=== PATIENT | female | born 1995 | race Two or more races ===

== ENCOUNTER → 2024-12-10 | Outpatient (CLI) | payer MEDICAID, SELFPAY ==
[2024-12-10 13:43] LABS: Misc Send Out* See Sep Rpt
[2024-12-10 14:38] LABS: Basophils % (Auto) 0 % (0-2.5); Eosinophils # (Auto) 0.1 Thou/mm3 (0.0-0.5); Eosinophils % (Auto) 1 % (0-10); Hematocrit 34.3 % (36.0-46.0); Hemoglobin 11.6 g/dL (12.0-16.0); Immature Granulocytes % (Auto) 0 % (0-0); Immature Granulocytes Auto 0.03 Thou/mm3 (0.00-0.00); Lymphocytes % (Auto) 23 % (10-50); Mean Corpuscular HGB Conc 33.8 g/dl (31.0-37.0); Mean Corpuscular Hemoglobin 28.6 pg (25.0-35.0); Mean Corpuscular Volume 85 fL (80-100); Monocytes # (Auto) 0.4 Thou/mm3 (0.0-0.8); Monocytes % (Auto) 5 % (0-12); Neutrophils # (Auto) 5.9 Thou/mm3 (1.8-7.7); Neutrophils % (Auto) 70 % (37-80); Nucleated Red Blood Cell % 0 /100 WBC (0); Platelet Count 329 Thou/mm3 (140-440); RDW Standard Deviation 42.4 fL (36.4-46.3); Red Blood Count 4.05 Miln/mm3 (4.00-5.20); White Blood Count 8.4 Thou/mm3 (3.6-11.0)
[2024-12-10 15:16] LABS: Glucose Estimated Average 97 mg/dL (80-131)
[2024-12-10 15:25] LABS: Syphilis Nonreactive (Nonreactive)
[2024-12-10 15:53] LABS: Hepatitis B Surface Antigen Non Reactive (Non React); Hepatitis C Antibody Non Reactive (Non React); Rubella, IgG Antibody Reactive (Immune)
[2024-12-10 16:08] LABS: HIV (1&2) Antibody Rapid Non-Reactive
[2024-12-11 13:01] LABS: Chlamydia trachomatis PCR Negative (Not Detect); Neisseria Gonorrhoeae DNA PCR Negative (Not Detect); Trichomonas Negative (Negative)
[2024-12-14 06:59] LABS: Varicella-Zoster IgG Ab* 1.77 S/CO
== END | disposition home or self-care (01) ==
LOC: COPL 13:15
PROVIDERS: PCP Obstetrics & Gynecology; Referring Provider Obstetrics & Gynecology; Visit Provider Obstetrics & Gynecology
DX: Z34.01 Encounter for supervision of normal first pregnancy, first trimester (principal)
CPT/HCPCS: 36415; 83036; 85025; 86703; 86762; 86780; 86787; 86803; 86850; 86900; 86901; 87086; 87340; 87491; 87591; 87661

== ENCOUNTER 2025-01-28 11:21 | Emergency (ER) | payer MEDICAID, SELFPAY ==
[2025-01-28 11:22] VITALS: BMI 27.3
[2025-01-28 11:37] VITALS: BP 106/71; PULSE 123; RESP 20; TEMP 36.9; O2SAT 97
--- NOTE | 2025-01-28 11:39 | XR_ITS ---
Examination: Complete OB ultrasound greater than 14 weeks Date and time of exam: January 28, 2025 1158 hours INDICATIONS: Abdominal pain and vomiting beginning 4 days ago Findings: Viable intrauterine single fetus with single amniotic sac presentation breech spine maternal right Cardiac motion 150 BPM Placenta anterior grade 1 Umbilical cord insertion seen Amniotic fluid adequate Cervix 3.1 cm Right ovary obscured by bowel gas Left ovary 2.8 cm arterial flow. Composite estimated gestational age based on BPD, head circumference, abdominal circumference, femur length is 20 weeks 0 days Estimated weight 305 g. Survey of intracranial anatomy, spinal anatomy, abdominal anatomy, four-chamber heart performed with no abnormalities identified. Impression: Viable intrauterine gestation breech presentation.
--- NOTE | 2025-01-28 11:40 | EDNOTE_ITS ---
Nausea/Vomit./Diarrhea-RME/HPI General Chief complaint: Nausea/Vomiting/Diarrhea Stated complaint: DIARRHEA FEVER Time Seen by Provider: 01/28/25 11:26 Source: patient Arrival date/time: 01/28/25 11:21 29-year-old female with no known medical history presents to the emergency room with a chief complaint of diarrhea, fever because of nausea x 2 days. Patient is currently 19 weeks . Patient denies any vaginal bleeding or pelvic cramping or pain. Mode of arrival: ambulatory Limitations: no limitations Related Data Home Medications ?Medication ?Instructions ?Recorded ?Confirmed hydroxyzine HCl 25 mg tablet 25 mg PO DAILY 09/20/21 0 09/20/21 Previous Rx's ?Medication ?Instructions ?Recorded ondansetron 4 mg disintegrating 4 mg PO Q8H PRN nausea and 01/28/25 tablet vomiting #14 tabs Allergies Allergy/AdvReac Type Severity Reaction Status Date / Time banana Allergy Intermediate Swelling Verified 10/26/21 17:50 Review of Systems Review of Systems Systems Reviewed: All systems reviewed, normal except as documented Constitutional Constitutional: Reports system reviewed and no additional complaints, except as documented, Denies fatigue, Denies fever(s), Denies headache(s) and Denies weakness Eyes Eyes: Reports system reviewed and no additional complaints, except as documented, Denies blurry vision and Denies change in vision ENT Ears, Nose, Mouth, and Throat: Reports system reviewed and no additional complaints, except as documented, Denies otalgia, Denies headache(s), Denies nasal congestion, Denies throat swelling and Denies vertigo Cardiovascular Cardiovascular: Reports system reviewed and no additional complaints, except as documented, Denies chest pain, Denies dyspnea and Denies dyspnea on exertion Respiratory Respiratory: Reports system reviewed and no additional complaints, except as documented, Denies chest congestion, Denies cough, Denies dyspnea, Denies dyspnea on exertion and Denies wheezing Gastrointestinal Gastrointestinal: Reports system reviewed and no additional complaints, except as documented, Denies abdominal pain, Denies cramping, Denies nausea and Denies vomiting Genitourinary Genitourinary: Reports system reviewed and no additional complaints, except as documented Musculoskeletal Musculoskeletal: Reports system reviewed and no additional complaints, except as documented and Denies back pain Integumentary/Breasts Skin/Breast: Reports system reviewed and no additional complaints, except as documented and Denies wounds Neurologic Neurologic: Reports system reviewed and no additional complaints, except as documented, Denies confusion, Denies headache(s), Denies lack of coordination, Denies vertigo and Denies weakness Psychiatric Psychiatric: Reports system reviewed and no additional complaints, except as documented, Denies anxiety, Denies confusion, Denies depression, Denies paranoia, Denies suicidal ideation and Denies tactile hallucinations Endocrine Endocrine: Reports system reviewed and no additional complaints, except as documented and Denies fatigue Hematologic/Lymphatic Hematologic/Lymphatic: Reports system reviewed and no additional complaints, except as documented and Denies lymphadenopathy Allergic/Immunologic Allergic/Immunologic: Reports system reviewed and no additional complaints, except as documented, Denies throat swelling, Denies urticaria and Denies wheezing ED Exam General Limitations: Present no limitations General appearance: Present alert and in no apparent distress Head Head exam: Present atraumatic Eye Eye exam: Present normal appearance, PERRL and EOMI ENT ENT exam: Present normal exam, normal oropharynx and mucous membranes moist Neck Neck exam: Present normal inspection, full ROM and trachea midline Chest Chest inspection: Present normal inspection and symmetric chest wall rise Respiratory Respiratory exam: Present normal lung sounds bilaterally Cardiovascular Cardiovascular exam: Present regular rate, normal rhythm and normal heart sounds Abdominal Exam Abdominal exam: Present soft, tenderness and normal bowel sounds Abdominal tenderness: Present diffuse and mild Extremities Exam Extremities exam: Present normal inspection and full ROM Back Exam Back exam: Present normal inspection and full ROM Neurological Exam Neurological exam: Present alert, oriented X3 and CN II-XII intact Psychiatric Psychiatric exam: Present normal affect and normal mood Skin Skin exam: Present warm, dry, intact and normal color Course Quality Measures none Orders Category Date Time Status US OB >= 14 weeks Fetus Stat Exams 01/28/25 11:39 Completed ABO/RH Type Stat Lab 01/28/25 12:32 Completed Beta HCG,Quantitative Stat Lab 01/28/25 12:32 Completed CBC Stat Lab 01/28/25 12:32 Completed CMP [Comprehensive Metabolic Panel] Stat Lab 01/28/25 12:32 Completed UA [Urinalysis] Stat Lab 01/28/25 11:51 Completed Metoclopramide [Reglan] Med 01/28/25 14:10 Discontinued 10 mg PO X1 ONE Ondansetron Odt [Zofran Odt] Med 01/28/25 11:39 Discontinued 4 mg PO X1 ONE Potassium Chloride [K-Dur] Med 01/28/25 14:10 Discontinued 40 meq PO X1 ONE Vital Signs Vital signs: Vital Signs Temperature 98.5 F 01/28/25 11:37 Pulse Rate 123 H 01/28/25 11:37 Respiratory Rate 20 01/28/25 11:37 Blood Pressure 106/71 01/28/25 11:37 Pulse Oximetry (%) 97 01/28/25 11:37 Saturation 97% within normal limits Nausea/Vomiting/Diarrhea MDM Narrative MDM Narrative:: 29-year-old female with no known medical history presents to the emergency room with a chief complaint of diarrhea, fever because of nausea x 2 days. Patient is currently 19 weeks . Patient denies any vaginal bleeding or pelvic cramping or pain. Patient is hemodynamically stable she is afebrile Physical examination shows a soft nontender abdomen. Patient states her main complaint is having diarrhea and nausea vomiting. Ultrasound OB was completed and shows a viable intrauterine gestation with heart tones at 158 bpm and an hCG level of 30,911 During her stay the patient was given Zofran with significant improvement to her symptoms Patient was discharged and educated to follow-up with primary care provider in the next 24 to 48 hours and return to the emergency room for any evidence of worsening signs or symptoms Patient data External records reviewed:: [facility] previous records Clinical information provided by:: patient Social determinants that could affect healthcare access:: none Patient has the following chronic illnesses:: No chronic illness How is presenting disease/condition affected by chronic disease/condition?: no chronic disease Evaluation data The following diagnostics were reviewed and interpreted by me:: lab results and radiology exam(s) Lab and/or radiology exams considered but not ordered:: Labs and radiology exams considered and ordered Interpretation Summary: OB ultrasound-Findings: Viable intrauterine single fetus with single amniotic sac presentation breech spine maternal right Cardiac motion 150 BPM Placenta anterior grade 1 Umbilical cord insertion seen Amniotic fluid adequate Cervix 3.1 cm Right ovary obscured by bowel gas Left ovary 2.8 cm arterial flow. Composite estimated gestational age based on BPD, head circumference, abdominal circumference, femur length is 20 weeks 0 days Estimated weight 305 g. Survey of intracranial anatomy, spinal anatomy, abdominal anatomy, four-chamber heart performed with no abnormalities identified. Impression: Viable intrauterine gestation breech presentation. Medications / Prescriptions Medications / Prescriptions considered but not ordered:: Medication given Medication administrations:: Medication Administration History Discontinued Medications Metoclopramide HCl (Metoclopramide 5 Mg Tablet) 10 mg PO X1 ONE Stop: 01/28/25 14:11 Last Admin: 01/28/25 14:25 Dose: 10 mg Documented By: EF Ondansetron HCl (Ondansetron Odt 4 Mg Tabrap) 4 mg PO X1 ONE; Protocol Stop: 01/28/25 11:40 Last Admin: 01/28/25 11:48 Dose: 4 mg Documented By: EF Potassium Chloride (Potassium Chloride 20 Meq Tabcr) 40 meq PO X1 ONE Stop: 01/28/25 14:11 Last Admin: 01/28/25 14:25 Dose: 40 meq Documented By: EF Medication given Consultations Consultation(s) initiated? (list below): No Diagnosis Nausea Differential Diagnosis: food poisoning, gastroenteritis and dehydration Most likely diagnosis given after review of the tests above:: Gastroenteritis Admission Indicated Admission indicated?: not indicated Admission Request Was there a request for admission?: No Disposition Plan Disposition Plan: Discharge Discharge Attestation Discharge Attestation: The patient and all family members were given an opportunity to ask questions and understood the discharge instructions. Discharge instructions specifically effects, indications for sooner follow up or return to the emergency department, and the expected course of current diagnosis. Patient condition: Stable Discharge Plan Plan Patient Disposition: HOME (Self Care) Discharge Disposition comment: Stable Prescriptions/Referrals Prescriptions/Med Rec: New ondansetron 4 mg tablet,disintegrating 4 mg PO Q8H PRN (Reason: nausea and vomiting) Qty: 14 0RF No Action hydroxyzine HCl 25 mg Tablet 25 mg PO DAILY Referrals: Ayah Keyes PA-C [Primary Care Provider] - In 1 week Problem List Clinical Impression: Gastroenteritis Patient/Caregiver Discharge Instructions Education Materials: Understanding Colitis, ED Gastroenteritis, Noninfectious Additional Instructions: Please follow-up with your primary care provider in the next 24 to 48 hours Ultrasound of your is within normal limits. Your blood work and urinalysis were within normal limits Medication was sent to your pharmacy to help you with your nausea For any evidence of worsening signs or symptoms return to the emergency room immediately Print Language: Malian Stand Alone Forms: Nilam Award Info., Work/School Release, Patient Portal Info Letter BALBIR Supervising Physician BALBIR Supervising Physician: Dr. Parmar
[2025-01-28] MEDS: ONDANSETRON ODT 4 MG TABRAP PO (11:48)
[2025-01-28 11:57] LABS: Collection Type, Urine Clean Catch
[2025-01-28 12:45] LABS: Bilirubin,Urine Negative (Negative); Blood,Urine Negative (Negative); Color,Urine Yellow (Lt Yel-Yel); Glucose, Urine Negative (Negative); Ketones,Urine 4+ (Negative); Leukocyte Esterase,Urine Positive (Negative); Nitrite,Urine Negative (Negative); Protein,Urine 1+ (Neg - Trace); RBC,Urine 3 /hpf (0-3); Specific Gravity,Urine 1.028 (1.001-1.035); Squamous Epithelial Cell,Urine 16 /hpf (0-5); WBC,Urine 4 /hpf (0-5)
[2025-01-28 12:52] LABS: Clarity,Urine Hazy (Clear/Hazy)
[2025-01-28 12:57] LABS: Basophils % (Auto) 0 % (0-2.5); Eosinophils % (Auto) 0 % (0-10); Hematocrit 31.8 % (36.0-46.0); Hemoglobin 10.9 g/dL (12.0-16.0); Immature Granulocytes % (Auto) 1 % (0-0); Immature Granulocytes Auto 0.04 Thou/mm3 (0.00-0.00); Lymphocytes # (Auto) 0.6 Thou/mm3 (1.0-4.8); Lymphocytes % (Auto) 7 % (10-50); Mean Corpuscular HGB Conc 34.3 g/dl (31.0-37.0); Mean Corpuscular Hemoglobin 29.9 pg (25.0-35.0); Mean Corpuscular Volume 87 fL (80-100); Monocytes # (Auto) 0.3 Thou/mm3 (0.0-0.8); Monocytes % (Auto) 4 % (0-12); Neutrophils # (Auto) 7.5 Thou/mm3 (1.8-7.7); Neutrophils % (Auto) 89 % (37-80); Nucleated Red Blood Cell % 0 /100 WBC (0); Platelet Count 248 Thou/mm3 (140-440); RDW Standard Deviation 41.2 fL (36.4-46.3); Red Blood Count 3.65 Miln/mm3 (4.00-5.20); White Blood Count 8.5 Thou/mm3 (3.6-11.0)
[2025-01-28 13:37] LABS: Alanine Aminotransferase 8 U/L (10-49); Albumin, Serum 3.9 gm/dL (3.5-5.0); Albumin/Globulin Ratio 1.7 (1.2-2.2); Alkaline Phosphatase 71 U/L (46-116); Anion Gap 13 (7-16); BUN/Creatinine Ratio 8 Ratio (12-20); Bilirubin,Total 0.6 mg/dL (0.3-1.2); Blood Urea Nitrogen 5 mg/dL (9-23); Calcium 8.3 mg/dL (8.3-10.6); Calcium (Corrected) 8.4 mg/dL (8.5-10.1); Carbon Dioxide 22.4 mMol/L (20.0-31.0); Chloride 105 mMol/L (98-107); Creatinine (Component) 0.6 mg/dL (0.6-1.3); Estimated Creatinine Clearance 121.2 mL/min (>60); Globulin 2.3 gm/dL (2.3-3.5); Glucose 99 mg/dL (74-106); Osmolality,Calculated 276 (275-295); Sodium 140 mMol/L (136-145); Total Protein 6.2 gm/dL (5.7-8.2); eGFR > 60 See Note
[2025-01-28 13:59] LABS: Beta HCG,Quantitative 30911 mIU/mL (<5.0)
[2025-01-28] MEDS: METOCLOPRAMIDE 5 MG TABLET 10 MG PO (14:25)
[2025-01-28] MEDS: POTASSIUM CHLORIDE 20 mEq TABCR 40 MEQ PO (14:25)
[2025-01-28 14:46] VITALS: BP 96/66; PULSE 105; RESP 15; TEMP 37; O2SAT 99
== END 2025-01-28 14:47 | disposition home or self-care (01) ==
PROVIDERS: Nurse Practitioner Family; Emergency Provider Family Medicine; PCP Physician Assistant
DX: O99.612 Diseases of the digestive system complicating pregnancy, second trimester (principal); K52.9 Noninfective gastroenteritis and colitis, unspecified; O32.1XX0 Maternal care for breech presentation, not applicable or unspecified; Z3A.20 20 weeks gestation of pregnancy
CPT/HCPCS: 36415; 76805; 80053; 81001; 84702; 85025; 86900; 86901; 99284; Q0162; A9270

== ENCOUNTER 2025-05-01 13:22 | Outpatient (AMB) | payer MEDICAID, SELFPAY ==
[2025-05-01 13:46] VITALS: BP 114/80; PULSE 100; RESP 20; TEMP 36.8; O2SAT 96; BMI 29.3
--- NOTE | 2025-05-01 13:46 | OBCLNT_ITS ---
Vital Signs 05/01/25 13:46 Height 1.55 m Height Method Stated Weight 70.477 kg Weight Measurement Method Standing Scale BMI 29.3 BP 114/80 Blood Pressure Source Automatic Cuff Blood Pressure Location Left Upper Arm Position Sitting Respiration 20 Pulse 100 Pulse Source Monitor Temp 98.3 F Temp Source Oral Pulse Oximetry (%) 96 Oxygen Delivery Method Room Air Allergies/Home Meds Allergies & Medications Allergies banana Allergy (Intermediate, Verified 05/01/25 13:46) Swelling Medication Reconciliation hydroxyzine HCl 25 mg tablet 25 mg PO DAILY 09/20/21 [History Confirmed 05/01/25] ondansetron 4 mg disintegrating tablet 4 mg PO Q8H PRN nausea and vomiting #14 tabs 01/28/25 [Rx Confirmed 05/01/25] Intake Visit Data Collection New Patient or Established: Established Patient (seen at [facility] within 3 years) Reason for Visit:: INITIAL CARE Seen by Clinical Staff ONLY (RN/MA): No Instructional Manager Required: No Do You Feel Safe at Home: Yes Authorities Contacted: N/A PCP or OBGYN visit in last 3 months: No Hx Now: Yes Are you currently on any form of Control: No Last menstrual period: 09/14/24 Pain Present Currently: No Pain Scale Used: Garsia-Quigley/Numerical Pain scale:: 0 Smoking Status Smoking Status: Never smoker Questionnaires Covid-19 Vaccine Questionnaire Has patient been vacinated for Covid-19 Have you been vacinated for Covid-19: Yes PHQ-9 PHQ-2 Over the last 2 weeks, how often have you been bothered by any of the following problems? 1. Little interest or pleasure in doing things: not at all 2. Feeling down, depressed, or hopeless: not at all Total score: 0 PHQ-9 3. Trouble falling or staying asleep, or sleeping too much: Not at all 4. Feeling tired or having little energy: Not at all 5. Poor appetite or overeating: Not at all 6. Feeling bad about yourself - or that you are a failure or have let yourself or your family down: Not at all 7. Trouble concentrating on things, such as reading the newspaper or watching television: Not at all 8. Moving or speaking so slowly that other people could have noticed? - Or the opposite - being so fidgety or restless that you have been moving around a lot more than usual: not at all 9. Thoughts that you would be better off or of hurting yourself in some way: Not at all Total score: 0 Source: Developed by Drs. Arnaldo Massey, Adia Perez, Constantin Keller and colleagues, with an educational myron from [employer]. Depression screen completed yes Social History Living Situation History Marital Status: Lives With: Family Housing: House Housing Other:: Has a 7 and 8-year-old at home Tobacco History Smoking Status: Never smoker Second Hand Smoke Exposure: No Alcohol History Alcohol Intake: Current Domestic Abuse History Do You Feel Safe at Home: Yes History of Present Illness HPI Narrative The patient is a very pleasant 29-year-old -0-0-2 who is 32 weeks by LMP. She was having a difficult time finding an obstetrical provider. She stated she saw somebody at a [facility] and had an ultrasound performed but I have no records. She states that she has not even had care labs drawn yet. 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 Today, she reports good movement no bleeding no contractions. She has had 2 uncomplicated vaginal deliveries 1 in 2017 and 1 in 2018. She states when she saw the provider at the [facility] they attempted to draw genetic screening but somehow this was not sent. 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 Labs and ultrasound ordered. Patient reports good movement denies contractions vaginal bleeding or loss of fluids. 1 ho ur glucose ordered. Menstrual History Menstrual reliability: definite Flow: normal Menstrual regularity: regular Monthly: Yes Age at menarche: 12 On control pills at conception: No Associated symptoms (LMP): Reports fatigue and breast tenderness OB History : 3 Para: 2 # of Living Children: 2 Delivery History 1st : Child's name: OLAMIDE date: 01/09/17 sex: male Gestational age at delivery (weeks): 39 Delivery type: vaginal weight (lbs): 3288.545 g Delivery complications: NONE History of depression before or after : No Additional comments: Had epidural. 2nd : date: 08/22/17 sex: female Gestational age at delivery (weeks): 39 Delivery type: vaginal weight (lbs): 3713.788 g Delivery complications: none History of depression before or after : No Additional comments: Two hour labor. No time for epidural. Infection History & Risk Evaluation History of STDs: none Genetic Screening & History Genetic Screening/Teratology Counseling - Includes patient, baby's father, or anyone in either family with: 1. Patient's age 35 years or older as of estimated date of delivery: No 2. Thalassemia (Sammarinese, Micronesian, Mediterranean, or Background); MCV less than 80: No 3. Neural Tube Defect (Meningomyelocele, Spina Bifida, or Anencephaly): No 4. Congenital Heart Defect: No 5. Down Syndrome: No 6. Fadi-Sachs (Ashkenazi Lutheran, Cajun, U[place]ayan [place]): No 7. Manjeet Disease (Ashkenazi Lutheran): No 8. Familial Dysautonomia (Ashkenazi Lutheran): No 9. Sickle Cell Disease or Trait (): No 10. Hemophilia or other blood disorders: No 11. Muscular Dystrophy: No 12. Cystic Fibrosis: No 13. Freeborn's Chorea: No 14. Mental Retardation/Autism: No 15. Other inherited genetic or chromosomal disorder: No 16. Maternal Metabolic Disorder (EG,TYPE 1 Diabetes, PKU): No 17. Patient or baby's father had a child with defects not listed above: No 18. Recurrent loss or a stillbirth: No 19. Medications (including supplements, vitamins, herbs or otc drugs)/ill icit/recreational drugs/alcohol since last menstrual period: No 20. Any other: No Infection History 1. Live with someone with TB or exposed to TB: No 2. Rash or viral illness since last menstrual period: No 3. Hepatitis B,C: No Other (see comments) Source: [employer] Review of Systems Constitutional Constitutional: Reports fatigue Endocrine Endocrine: Reports fatigue Exam General Limitations: no limitations General Appearance: alert, in no apparent distress, comfortable, cooperative, healthy appearing and well groomed Neck Neck exam: Present normal inspection, full ROM and trachea midline Chest Chest inspection: Present normal inspection and symmetric chest wall rise Resp Respiratory exam: Present normal lung sounds bilaterally Card Cardiovascular exam: Present regular rate, normal rhythm and normal heart sounds Abdominal Abdominal exam: Present soft, normal bowel sounds and other (Fundal height 32) Extremities Extremities exam: Present normal inspection and full ROM Back Back exam: Present normal inspection and full ROM Psych Psychiatric exam: Present normal affect and normal mood Skin Skin exam: Present warm, dry, intact and normal color Office Procedures OB Clinic LOC & Office Proc's Nursing/Assessment Patient Status: Established Patient OB Clinic Nursing Assessment: Medication Reconciliation, Update PMH in EMR and Vital Signs OB Clinic Coordination of Care: Complex Care and Chronic Disease 1-5, Consent,records obtained, informed consent, Education Simp Pt/Fam, 1 Ins Authorization, Lab and Imaging orders, Results/Orders obtained and Staff clarify orders Special Needs: Heart tones Established Patient Charge Established Patient Point Assignment: 150 Established Patient Point Charge: EP Level 4 (120-155) Assessment & Plan Diagnosis / Problem List (1) : Status: Acute Qualifiers: Weeks of gestation: 32 weeks Qualified Code(s): Z3A.32 - 32 weeks gestation of Plan: All labs ordered including hemoglobin A1c and hepatitis C. Structural survey ultrasound ordered.
== END 2025-05-01 14:33 | disposition home or self-care (01) ==
PROVIDERS: PCP Physician Assistant; Referring Provider Physician Assistant; Supervising Provider Obstetrics & Gynecology; Visit Provider Obstetrics & Gynecology
DX: O09.893 Supervision of other high risk pregnancies, third trimester (principal); O32.1XX0 Maternal care for breech presentation, not applicable or unspecified; Z3A.32 32 weeks gestation of pregnancy; Z91.018 Allergy to other foods
CPT/HCPCS: 99214; G0463

== ENCOUNTER 2025-05-17 12:57 | Outpatient (AMB) | payer MEDICAID, SELFPAY ==
[2025-05-17 13:04] VITALS: BP 99/69; PULSE 98; RESP 18; TEMP 36.6; O2SAT 96; BMI 29.7
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
== END 2025-05-17 13:23 | disposition home or self-care (01) ==
LOC: HODSOBC 12:57
PROVIDERS: Supervising Provider Obstetrics & Gynecology; Visit Provider Obstetrics & Gynecology
DX: Z34.83 Encounter for supervision of other normal pregnancy, third trimester (principal); Z3A.35 35 weeks gestation of pregnancy
CPT/HCPCS: 99214; G0463

== ENCOUNTER → 2025-05-17 | Outpatient (CLI) | payer MEDICAID, SELFPAY ==
--- NOTE | 2025-05-17 12:05 | XR_ITS ---
Examination: Complete OB ultrasound greater than 14 weeks Date and time of exam: May 17, 2025, 12:12 PM INDICATIONS: Encounter for supervision of normal Findings: Viable intrauterine single fetus with single amniotic sac presentation cephalic Cardiac motion 153 BPM Placenta fundal grade 2 Umbilical cord insertion seen. Amniotic fluid index 7.1 cm Cervix obscured by bowel gas as well as ovaries. Composite estimated gestational age based on BPD, head circumference, abdominal circumference, femur length is 35 weeks 4 days Estimated weight 2672.7 g. Survey of intracranial anatomy, spinal anatomy, abdominal anatomy, four-chamber heart performed with no abnormalities identified. Impression: Viable intrauterine gestation cephalic presentation.
== END | disposition home or self-care (01) ==
LOC: CDIM 11:58
PROVIDERS: PCP Family Medicine; Referring Provider Obstetrics & Gynecology; Visit Provider Obstetrics & Gynecology
DX: Z34.90 Encounter for supervision of normal pregnancy, unspecified, unspecified trimester (principal); Z3A.35 35 weeks gestation of pregnancy
CPT/HCPCS: 76805

== ENCOUNTER 2025-05-27 13:22 | Outpatient (AMB) | payer MEDICAID, SELFPAY ==
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
[2025-05-27 13:41] VITALS: BP 96/65; PULSE 97; RESP 17; TEMP 36.7; O2SAT 98; BMI 29.4
== END 2025-05-27 14:26 | disposition home or self-care (01) ==
PROVIDERS: Supervising Provider Advanced Practice Midwife; Visit Provider Advanced Practice Midwife
DX: O09.893 Supervision of other high risk pregnancies, third trimester (principal); O23.43 Unspecified infection of urinary tract in pregnancy, third trimester; Z3A.36 36 weeks gestation of pregnancy; Z36.85 Encounter for antenatal screening for Streptococcus B; Z91.018 Allergy to other foods
CPT/HCPCS: 99214; G0463

== ENCOUNTER 2025-06-11 13:01 | Outpatient (AMB) | payer MEDICAID, SELFPAY ==
[2025-06-11 13:04] VITALS: BP 96/64; PULSE 76; RESP 18; TEMP 36.7; O2SAT 97; BMI 29.6
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
== END 2025-06-11 13:24 | disposition home or self-care (01) ==
LOC: HODSOBC 13:01
PROVIDERS: Supervising Provider Advanced Practice Midwife; Visit Provider Advanced Practice Midwife
DX: O09.93 Supervision of high risk pregnancy, unspecified, third trimester (principal); Z3A.38 38 weeks gestation of pregnancy; Z91.018 Allergy to other foods
CPT/HCPCS: 99214; G0463

== ENCOUNTER 2025-06-17 06:48 | Inpatient (IN) | payer BC, MEDICAID, SELFPAY ==
[2025-06-17] VITALS (142 sets, daily range): BP systolic 58–129; BP diastolic 28–76; PULSE 44–161; RESP 16–100; TEMP 36.7–37.1; O2SAT 91–100; BMI 29.0; BMI 28.9
--- NOTE | 2025-06-17 07:13 | XR_ITS ---
Examination: Complete OB ultrasound greater than 14 weeks Date and time of exam: June 17, 2025, 0748 hours INDICATIONS: Patient in active labor with pelvic contractions today Findings: Viable intrauterine single fetus with single amniotic sac presentation cephalic Cardiac motion 148 bpm Placenta fundal anterior grade 2 Umbilical cord insertion seen. Amniotic fluid index 3.2 cm internal echoes and debris in the amniotic fluid Cervix 3.2 cm Ovaries obscured by bowel gas. Composite estimated gestational age based on BPD, head circumference, abdominal circumference, femur length is 38 weeks 4 days Estimated weight 3578 g. Survey of intracranial anatomy, spinal anatomy, abdominal anatomy, four-chamber heart performed with no abnormalities identified. Impression: Viable intrauterine gestation in cephalic presentation Amniotic fluid index 3.2 cm, debris in the amniotic fluid.
--- NOTE | 2025-06-17 07:13 | XR_ITS ---
Examination: Biophysical profile, ultrasound Date and time of exam: June 17, 2025, 0809 hours INDICATIONS: Patient in active labor with pelvic contractions today Technique: Multiple transabdominal sonographic images of the pelvis abdomen obtained. Attention is directed to the breathing movement, gross body movement, amniotic fluid volume and tone. Findings: Amniotic fluid index 3.7 cm Total biophysical profile is 6 of 8. breathing movement is 2. Gross body movement is 2. tone is 2. Qualitative amniotic fluid volume 0 Impression: Biophysical profile is 6 of 8.
[2025-06-17] MEDS: RINGERS LACTATED 1000 ML 1,000 ML 999 ML IV (07:20)
[2025-06-17 08:46] LABS: Basophils # (Auto) 0.0 Thou/mm3 (0.0-0.2); Basophils % (Auto) 0 % (0-2.5); Eosinophils # (Auto) 0.1 Thou/mm3 (0.0-0.5); Eosinophils % (Auto) 1 % (0-10); Hematocrit 34.5 % (36.0-46.0); Hemoglobin 10.9 g/dL (12.0-16.0); Immature Granulocytes Auto 0.04 Thou/mm3 (0.00-0.00); Lymphocytes # (Auto) 2.0 Thou/mm3 (1.0-4.8); Lymphocytes % (Auto) 19 % (10-50); Mean Corpuscular HGB Conc 31.6 g/dl (31.0-37.0); Mean Corpuscular Hemoglobin 26.0 pg (25.0-35.0); Mean Corpuscular Volume 82 fL (80-100); Monocytes # (Auto) 0.7 Thou/mm3 (0.0-0.8); Monocytes % (Auto) 6 % (0-12); Neutrophils # (Auto) 7.8 Thou/mm3 (1.8-7.7); Neutrophils % (Auto) 74 % (37-80); Nucleated Red Blood Cell # 0.00 Thou/mm3 (0.00-0.00); Nucleated Red Blood Cell % 0 /100 WBC (0); Platelet Count 292 Thou/mm3 (140-440); RDW Standard Deviation 42.6 fL (36.4-46.3); Red Blood Count 4.20 Miln/mm3 (4.00-5.20); White Blood Count 10.6 Thou/mm3 (3.6-11.0)
--- NOTE | 2025-06-17 08:49 | PD.LDHP ---
Documentation for date of: 06/17/25 OB Labor/Induct. HPI History of Present Illness Chief complaint: labor : 3 Para: 2 Term pregnancies: 2 pregnancies: 0 Living children: 2 History of Abortions: Spontaneous and Elective: 0 History of Vaginal deliveries: 2 History of sections: No History of : No Date of last menstrual period: 09/14/24 KARTHIK: 06/21/25 Gestational Age (weeks): 39 Gestational Age (days): 5 Gestational age based on last menstrual period: 39 History of present illness: 29-year-old 3 para two 5-year-old complaints of labor since 6 in the morning. Denies leaking: No bleeding, reports movement. Last period September 14, 2024. Estimated due date June 21, 2025. Patient is not had problems with the . Denies social habits. Surgeries. Chronic illness. Patient is a positive, antibody screen negative, RPR nonreactive, rubella immune, hepatitis B negative, hep C negative, HPV IV negative, GC and Chlamydia were negative. GBS negative. NIPT and a cystic fibrosis carrier screens all negative History of Present Dating criteria: LMP confirmed by 2nd trimester US Adequate Care: Yes Ultrasounds: none Obstetrical complications: none Labs Labs: Positive: Rubella Titre, Negative: RPR, Hepatitis B, HIV, Chlamydia, Gonorrhea and Group Beta Strep and Unknown: Herpes Type 1, Herpes Type 2 and Covid-19 Review of Systems Review of Systems Systems Reviewed: All systems reviewed, normal except as documented Past Medical History Surgical History SURGICAL: Negative Section Meds Home Medications and Allergies Home Medications ?Medication ?Instructions ?Recorded ?Confirmed ?Type vits no.130-ferrous fum 1 tab PO QDAY 06/17/25 06/17/25 History 27 mg iron-folic acid 800 mcg tablet ( Vitamin) Allergies Allergy/AdvReac Type Severity Reaction Status Date / Time banana Allergy Intermediate Swelling Verified 06/17/25 07:00 OB Exam Physical Exam Vital signs: Temp Pulse Resp BP Pulse Ox 98.1 F 95 18 100/67 100 06/17/25 06:55 06/17/25 06:55 06/17/25 06:55 06/17/25 06:55 06/17/25 07:42 Narrative: Vital signs stable afebrile. Lungs are clear no wheezes. Gravid abdomen. Gynecoid pelvis. Estimated weight 7 pounds. Vaginal exam on admission was 80% and 6-2 vertex bag water intact anterior. heart rate after IV hydration category 1 with accelerations and moderate variability no decelerations contractions about every 3 to 5 minutes Detailed Labor and Delivery Exam Dilation (cm): 3-4 Effacement (%): 80 Cervix position: mid station: -2 Consistency: soft Presentation: Vertex Cervical ripeness score: 8 Membranes: intact monitor accelerations: 15x15 monitor decelerations: Late halfway variability: Minimal (3-5) Contraction frequency (min): 3-5 Contraction duration (sec): moderate Tachysystole: No Contraction intensity: Mild OB Results Labs 06/17/25 08:10 Labs: Short CBC 06/17/25 Range/Units 08:10 WBC 10.6 (3.6-11.0) Thou/mm3 Hgb 10.9 L (12.0-16.0) g/dL Hct 34.5 L (36.0-46.0) % Plt Count 292 (140-440) Thou/mm3 OB Assessment & Plan Additional Plan Induction method: none Plan: anticipate NVD and consult MD nuno
[2025-06-17] MEDS: RINGERS LACTATED 1000 ML 1,000 ML 100 ML IV ×4 (08:52→13:35)
[2025-06-17 09:23] LABS: Syphilis Nonreactive (Nonreactive)
--- NOTE | 2025-06-17 12:43 | PD.LDPN ---
Documentation for date of: 06/17/25 OB Labor Progress Note Pain Control Pain control: epidural Pelvic Exam Dilation (cm): 7-8 Effacement (%): 90, swollen station: -1 Amniotic membrane status: Ruptured Contractions Monitor mode: External Contraction frequency: 3-5 Contraction intensity: Moderate Status status: Category ll History of Present Illness HPI 29-year-old 3 para two 5-year-old complaints of labor since 6 in the morning. Denies leaking: No bleeding, reports movement. Last period September 14, 2024. Estimated due date June 21, 2025. Patient is not had problems with the . Denies social habits. Surgeries. Chronic illness. Patient is a positive, antibody screen negative, RPR nonreactive, rubella immune, hepatitis B negative, hep C negative, HPV IV negative, GC and Chlamydia were negative. GBS negative. NIPT and a cystic fibrosis carrier screens all negative
[2025-06-17] MEDS: OXYTOCIN in NS 20 units 20 UNIT/1,000 ML BAG 125 UNIT IV (14:36)
[2025-06-17] MEDS: METHYLERGONOVINE INJ 0.2 MG/ML VIAL IM (14:37)
[2025-06-17] MEDS: MINERAL OIL 30 ML UDC TOP (14:37)
--- NOTE | 2025-06-17 17:18 | PC.NURSE ---
Mother resting comfortably in room w/ family at bedside. Pt moving around easily and denies any pain at this time. Will continue to monitor.
--- NOTE | 2025-06-17 18:57 | PD.LDDELS ---
Data (Lewis) Data Hx Section: No Maternal Blood Type: A Pos Rubella Titre: Positive RPR: Non-reactive Labs: Negative: RPR, Hepatitis B, HIV, Chlamydia, Gonorrhea and Group Beta Strep : 3 Term: 2 : 0 Livin Abortions: Spontaneous & Theraputic: 0 Delivery Data (Lewis) Labor Data Initiation of labor: Spontaneous Induction/Augmentation Agent: None ROM date: 06/17/25 ROM time: 09:50 Amniotic membrane rupture type: Artificial Amniotic fluid description: Clear Delivery Data EDC: 06/21/25 EDC calculated by:: LMP/early US confirmation Date of arrival to unit: 06/17/25 Onset of labor date: 06/17/25 Onset of labor time: 04:00 Complete dilation date: 06/17/25 Complete dilation time: 13:52 delivery date: 06/17/25 delivery time: 14:17 Gestational age (weeks): 39 Gestational age (days): 3 Placenta delivery date: 06/17/25 Placenta delivery time: 14:29 Stage 1 total time: Labor - Stage 1 Duration 9 hours and 52 minutes Delivered by: Deisy Macario ([facility]) Delivery nurse: derrell Ng nurse: marion Earth [employer] Faculty Member at delivery: Yes (merrill) Support person(s) at delivery: fob, mother of patient Delivery Method Delivery method: Normal Vaginal Delivery Presentation: Vertex position: OA Anesthesia Type Anesthesia Type: Epidural Delivery Room Medications Delivery room medications: Methergine 0.2 mg IM and Pitocin 20 u IV Placenta Placenta delivery description: Spontaneous Cord blood sent to lab: Yes cord blood collection: Cord Blood Type Episiotomy Episiotomy description: None Lacerations #1: Perineal: 1st degree Perineal repair Sutures used for repair: 4.0 Chromic EBL Estimated blood loss (ml): 200 Umbilical Cord cord description: 3 Vessels Additional Procedures The patient is a 29-year-old -0-0-2 history of a vaginal delivery 7 and 8 years ago. She was admitted by Maggy Colin CNM in early labor. She was starting to have some occasional decelerations and was 8 cm around lunchtime. Maggy signed her out to me about 1300. The patient went on to progress to complete without the aid of Pitocin by 1352 and began pushing shortly thereafter. She pushed for approximately 15 minutes delivering a liveborn male at 1417. Findings liveborn male in the [place] presentation with a loose nuchal cord x 1, no meconium. Apgars were 8 and 9, weight was 8 pounds 8 ounces. Of note, the baby was vigorous at and placed directly on mom's chest. Delayed cord clamping was performed for approximately 2 minutes. The cord was clamped and cut, cord blood was sent ,Cord gases were sent. The placenta was complete,spontaneous, grossly normal delivering approximately 5 minutes after the baby delivered. After delivery, the patient had couple of heavier episodes of bleeding relieved by uterine massage, IV Pitocin and IM Methergine. She had a first-degree perineal laceration repaired in a standard fashion using 4-0 chromic. QBL was 200 cc. Complications were none. Condition: both mom and were in stable condition in the delivery room. Complications Complications: None Maribel Data (Lewis) Maribel Data Maribel's name: Shawn 's gender: Male Identification band number: [id number] weight (gms): 3855 g Weight (pounds): 8 lbs and 8.0 ozs Maribel length: 51 cm 1 minute: 8 5 minutes: 9
[2025-06-17 21:50] LABS: Basophils # (Auto) 0.0 Thou/mm3 (0.0-0.2); Basophils % (Auto) 0 % (0-2.5); Eosinophils # (Auto) 0.0 Thou/mm3 (0.0-0.5); Eosinophils % (Auto) 0 % (0-10); Hematocrit 28.9 % (36.0-46.0); Hemoglobin 9.3 g/dL (12.0-16.0); Immature Granulocytes Auto 0.12 Thou/mm3 (0.00-0.00); Lymphocytes # (Auto) 1.8 Thou/mm3 (1.0-4.8); Lymphocytes % (Auto) 10 % (10-50); Mean Corpuscular HGB Conc 32.2 g/dl (31.0-37.0); Mean Corpuscular Hemoglobin 26.1 pg (25.0-35.0); Mean Corpuscular Volume 81 fL (80-100); Monocytes # (Auto) 1.3 Thou/mm3 (0.0-0.8); Monocytes % (Auto) 7 % (0-12); Neutrophils # (Auto) 14.8 Thou/mm3 (1.8-7.7); Neutrophils % (Auto) 82 % (37-80); Nucleated Red Blood Cell # 0.00 Thou/mm3 (0.00-0.00); Nucleated Red Blood Cell % 0 /100 WBC (0); Platelet Count 243 Thou/mm3 (140-440); RDW Standard Deviation 41.7 fL (36.4-46.3); Red Blood Count 3.57 Miln/mm3 (4.00-5.20); White Blood Count 18.1 Thou/mm3 (3.6-11.0)
[2025-06-18 04:01] VITALS: BP 93/61; PULSE 69; RESP 14; TEMP 36.6; O2SAT 96
[2025-06-18 07:23] LABS: Basophils # (Auto) 0.0 Thou/mm3 (0.0-0.2); Basophils % (Auto) 0 % (0-2.5); Eosinophils # (Auto) 0.1 Thou/mm3 (0.0-0.5); Eosinophils % (Auto) 0 % (0-10); Hematocrit 30.1 % (36.0-46.0); Hemoglobin 9.3 g/dL (12.0-16.0); Immature Granulocytes Auto 0.07 Thou/mm3 (0.00-0.00); Lymphocytes # (Auto) 2.5 Thou/mm3 (1.0-4.8); Lymphocytes % (Auto) 16 % (10-50); Mean Corpuscular HGB Conc 30.9 g/dl (31.0-37.0); Mean Corpuscular Hemoglobin 25.3 pg (25.0-35.0); Mean Corpuscular Volume 82 fL (80-100); Monocytes # (Auto) 0.9 Thou/mm3 (0.0-0.8); Monocytes % (Auto) 6 % (0-12); Neutrophils # (Auto) 12.3 Thou/mm3 (1.8-7.7); Neutrophils % (Auto) 77 % (37-80); Nucleated Red Blood Cell # 0.00 Thou/mm3 (0.00-0.00); Nucleated Red Blood Cell % 0 /100 WBC (0); Platelet Count 269 Thou/mm3 (140-440); RDW Standard Deviation 42.6 fL (36.4-46.3); Red Blood Count 3.68 Miln/mm3 (4.00-5.20); White Blood Count 15.9 Thou/mm3 (3.6-11.0)
[2025-06-18 08:00] VITALS: BP 95/63; PULSE 82; RESP 18; TEMP 36.7; O2SAT 99
--- NOTE | 2025-06-18 09:11 | ESPR_ITS ---
Subjective Subjective Interval history: No complaints of pain. No dizziness. Bonding breast Exam Vital Signs Temp Pulse Resp BP Pulse Ox O2 Del Method 97.8 F 69 14 93/61 96 Room Air 06/18/25 04:01 06/18/25 04:01 06/18/25 04:01 06/18/25 04:01 06/18/25 04:01 06/18/25 04:01 Narrative Exam Vital signs stable afebrile. Breasts are soft. Fundus firm below umbilicus. Perineum intact no swelling. Small lochia. Uterus well involuted. Negative Homans' sign. 2+ DTRs Objective Labs 06/18/25 06:33 Labs: Laboratory Results - last 24 hr 06/17/25 06/17/25 06/17/25 07:20 08:10 21:23 WBC 18.1 H D RBC 3.57 L Hgb 9.3 L Hct 28.9 L MCV 81 MCH 26.1 MCHC 32.2 RDW Std Deviation 41.7 Plt Count 243 D Neut % (Auto) 82 H Lymph % (Auto) 10 [place] % (Auto) 7 Eos % (Auto) 0 Baso % (Auto) 0 Neut # (Auto) 14.8 H Lymph # (Auto) 1.8 [place] # (Auto) 1.3 H Eos # (Auto) 0.0 Baso # (Auto) 0.0 Immature Gran # (Auto) 0.12 H Absolute Nucleated RBC 0.00 Immature Gran % 1 H Nucleated RBC % 0 Syphilis Serology Nonreactive Blood Type A Positive Antibody Screen NEGATIVE 06/18/25 06:33 WBC 15.9 H RBC 3.68 L Hgb 9.3 L Hct 30.1 L MCV 82 MCH 25.3 MCHC 30.9 L RDW Std Deviation 42.6 Plt Count 269 Neut % (Auto) 77 Lymph % (Auto) 16 [place] % (Auto) 6 Eos % (Auto) 0 Baso % (Auto) 0 Neut # (Auto) 12.3 H Lymph # (Auto) 2.5 [place] # (Auto) 0.9 H Eos # (Auto) 0.1 Baso # (Auto) 0.0 Immature Gran # (Auto) 0.07 H Absolute Nucleated RBC 0.00 Immature Gran % 0 Nucleated RBC % 0 Syphilis Serology Blood Type Antibody Screen Assessment & Plan Assessment Comment Assessment comment: 24 hr pp Plan Comment Plan Comment: Discharge home with baby. Continue vitamins and iron. Tylenol or ibuprofen for pain. Discussed danger signs symptoms and ER precautions. And I discussed signs and symptoms of infection. Increase fluids. Return and 3 weeks Time Spent With Patient Time: Total time spent is greater than 50% in coordination of care (as documented) at patient's floor/unit and/or counseling patient:
[2025-06-18] MEDS: DOCUSATE SOD 100 MG CAPSULE PO (09:12)
--- NOTE | 2025-06-18 09:13 | ESDS_ITS ---
DS: Providers Provider Date of admission: 06/17/25 16:17 Primary care physician: Erickson Mattson MD Admitting Provider: Maggy Colin CNM Attending Provider on Admission: Maggy Colin CNM Consults: 06/17/25 15:01 Referral Routine Comment: Attending Provider on DC: Maggy Colin CNM Discharging Provider: Maggy Colin CNM DS: Diagnosis Problem List Completed Was Problem List Reviewed/Reconciled?: Yes Summary/Hosp Course Brief History: 29-year-old 3 para two 5-year-old complaints of labor since 6 in the morning. Denies leaking: No bleeding, reports movement. Last period September 14, 2024. Estimated due date June 21, 2025. Patient is not had problems with the . Denies social habits. Surgeries. Chronic illness. Patient is a positive, antibody screen negative, RPR nonreactive, rubella immune, hepatitis B negative, hep C negative, HPV IV negative, GC and Chlamydia were negative. GBS negative. NIPT and a cystic fibrosis carrier screens all negative Peripartum Data Delivery Method: Normal Vaginal Delivery Episiotomy Description: None Laceration Description: yes (vaginal) complications: none Time Spent with Patient Time attestation: Total time spent providing and/or coordinating discharge services: Exam Vital Signs Temp Pulse Resp BP Pulse Ox O2 Del Method 97.8 F 69 14 93/61 96 Room Air 06/18/25 04:01 06/18/25 04:01 06/18/25 04:01 06/18/25 04:01 06/18/25 04:01 06/18/25 04:01 Discharge Plan Plan Patient Disposition: HOME (Self Care) Patient condition on transfer: Stable Prescriptions/Referrals Prescriptions/Med Rec: No Action Vitamin 27 mg iron- 800 mcg tablet 1 tab PO QDAY Referrals: Erickson Mattson MD [Primary Care Provider, Family Practice] Patient/Caregiver Discharge Instructions Meds to Beds: No Discharge Activity: resume usual activities Print Language: Romanian Activity Restrictions/Additional Instructions: Discharge home with baby. Continue vitamins and iron. Tylenol ibuprofen for pain. Discussed danger signs and symptoms and ER precautions. Discussed signs symptoms of infection. Comfort measures for vaginal laceration. Return in 3 weeks visit Stand Alone Forms: Nilam Award Info., Patient Portal Info Letter Discharge Order Discharge Orders: Discharge (Routine); Ordered 06/18/25 Ordered By: Maggy Colin Planned Discharge Date 06/18/25
== END 2025-06-18 17:40 | disposition home or self-care (01) | DRG 807 ==
LOC: S4SX 16:08 → S4NX 16:16
PROVIDERS: Obstetrics & Gynecology; Admitting Provider Advanced Practice Midwife; PCP Family Medicine; Visit Provider Obstetrics & Gynecology
DX: O69.81X0 Labor and delivery complicated by cord around neck, without compression, not applicable or unspecified (principal); Z37.0 Single live birth; O70.0 First degree perineal laceration during delivery; Z3A.39 39 weeks gestation of pregnancy
CPT/HCPCS: 36415; 59025; 76805; 76819; 85025; 86780; 86850; 86900; 86901; J2210; J2371; J2590; J2795; J3010; J7120; A9270

== ENCOUNTER 2025-07-08 10:11 | Outpatient (AMB) | payer BC, MEDICAID, SELFPAY ==
[2025-07-08 10:29] VITALS: BP 102/66; PULSE 67; RESP 18; TEMP 36.5; O2SAT 98; BMI 27.1
--- NOTE | 2025-07-08 10:29 | AMBOBPPN_ITS ---
Vital Signs 07/08/25 10:29 Height 1.55 m Height Method Stated Weight 65.091 kg Weight Measurement Method Standing Scale BMI 27.1 BP 102/66 Blood Pressure Source Automatic Cuff Blood Pressure Location Right Upper Arm Position Sitting Respiration 18 Pulse 67 Pulse Source Monitor Temp 97.7 F Temp Source Temporal Artery Scan Pulse Oximetry (%) 98 Oxygen Delivery Method Room Air Allergies/Home Meds Allergies & Medications Allergies banana Allergy (Intermediate, Verified 07/08/25 10:31) Swelling Medication Reconciliation vits no.130-ferrous fum 27 mg iron-folic acid 800 mcg tablet ( Vitamin) 1 tab PO QDAY 06/17/25 [History Confirmed 07/08/25] Intake Visit Data Collection New Patient or Established: Established Patient (seen at [facility] within 3 years) Reason for Visit:: PP Seen by Clinical Staff ONLY (RN/MA): No Real Estate Services Administrator Required: No Do You Feel Safe at Home: Yes Authorities Contacted: N/A PCP or OBGYN visit in last 3 months: Yes Hx Now: No Are you currently on any form of Control: No Pain Present Currently: No Pain Scale Used: Garsia-Quigley/Numerical Pain scale:: 0 Smoking Status Smoking Status: Never smoker Immunizations Flu Vaccine in the Last 12 Months: No Flu Vaccine Exclusion Criteria: No Exclusion Criteria FIELD OPERATIONS MANAGER: Past Medical History Past Medical History: No Hx Neurological Disorders, No Hx Breast Cancer, No Hx Cardiac Disorders, Yes Hx Blood Disorders, Yes Hx Anemia, No Hx Gastrointestinal Disorders, No Hx Renal Disease, No Hx Diabetes Mellitus Type 1 and No Hx Diabetes Mellitus Type 2 Questionnaires Covid-19 Vaccine Questionnaire Has patient been vacinated for Covid-19 Have you been vacinated for Covid-19: No Social History Living Situation History Marital Status: Life Partner Lives With: Family Housing: House Housing Other:: Has a 7 and 8-year-old at home Tobacco History Smoking Status: Never smoker Second Hand Smoke Exposure: No Alcohol History Alcohol Intake: Never Domestic Abuse History Do You Feel Safe at Home: Yes EPDS - PP Depression Screening [place] Pospartum Depression Screen I have been able to laugh and see the funny side of things: (0) As much as I always could I have looked forward with enjoyment to things: (0) As much as I ever did I have blamed myself unnecessarily when things went wrong: (0) No, never I have been anxious or worried for no good reason: (0) No, not at all I have felt scared or panicky for no very good reason: (0) No, not at all Things have been getting on top of me: (0) No, I have been coping as well as ever I have been so unhappy that I have had difficulty sleeping: (0) No, not at all I have felt sad or miserable: (0) No, not at all I have been so unhappy that I have been crying: (0) No, never The thought of harming myself has occurred to me: (0) Never EPDS completed yes Care OB Visit Log OB Flowsheet Initial Weight: Not Recorded Date -?-?-?-?-?-?-?-?-?-?-?-?- EGA Weight BP Alb Glu CTX Pres Fundal ht FHR Mov Dilation Station Effacement Hx Notes Visit Note 05/01/25 -?-?-?-?-?-?-?-?-?-?-?-?- 32w 5d 70.477 kg 114/80 breech 32 145 ac tive New OB. Labs and ultrasound ordered. Patient reports good movement denies contractions vaginal bleeding or loss of fluids. 1 ho ur glucose ordered. 05/17/25 -?-?-?-?-?-?-?-?-?-?-?-?- 35w 0d 71.327 kg 99/69 occasional cephalic 35 147 active Labs reviewed from November 2024 and normal Patient akbar plaza had her glucose test today and ultrasound for growth at [facility]. 05/27/25 -?-?-?-?-?-?-?-?-?-?-?-?- 36w 3d 70.76 kg 96/65 occasional cephalic 36 1 45 active Fetus active. Patient would like disability. No OB complaints. Denies leaking, bleeding, contractions GBS today. Macr obid 100 p.o. twice daily for UTI. Increase fluids. Discussed labor precautions. Note to start disability. Patient's last date of work will be May 31 and then disability will start June 03. Discussed labor precautions and kick count. Return in a week OB 06/11/25 -?-?-?-?-?-?-?-?-?-?-?-?- 38w 4d 71.214 kg 96/64 occasional cephalic 37 138 active Fetus active. Reports irregular contractions. Denies leaking or bleeding. No leaking, no bleeding. Discussed GBS is negative. Kick count twice a day. Discussed OB comforts. Return a week OB check KARTHIK Calculator Estimated Delivery Date Method Current WG Current Estimate 06/21/25 LMP (Certain) 42w 3d Other Estimates 06/17/25 Ultrasound #1 43w 0d 06/21/25 Manual 42w 3d final karthik: 05/24 09/15 Expected Delivery Route/Plan labs on chart December 10, 2024 at [facility]:A+/antibody negative/rubella immune/RPR nonreactive/HIV negative/hepatitis B surface antigen negative/gonorrhea negative Chlamydia negative/cystic fibrosis testing from [place] negative/no NIPT drawn/hemoglobin A1c in November was 5/structural survey January 28, 2025 at [facility] normal structural survey baby was 20 weeks and 0 days Specific Issue/Plans -0-0-2 Vaginal delivery in 2017 of a son. She did have an epidural with that delivery. Vaginal delivery in 2018 of a daughter. Labor was too fast to get an epidural. Patient desires epidural this . Notes Visit Date: 06/11/25 Last Updated by: Maggy Beltran CNM 06/11: GBS- Visit Date: 05/27/25 Last Updated by: Maggy Beltran CNM OB panel: A+,abs-, rpr;;nr, rub imm, hbsag-, hiv-, HC-, GC/CT-, + UTI/TX with macrobid, RPR::NR, rub imm, 1 hr gtt:wnl Visit Date: 05/17/25 Last Updated by: Deisy Macario ([facility])MD Patient presents with her . She is doing well. She was concerned as the baby was breech on last ultrasound 2 weeks ago. Today the baby is vertex. An official ultrasound was done today revealing a live IUP in the vertex presentation with a fundal grade 2 placenta CHARLI 7.1 baby is measuring 35- 4/7 days with a estimated weight of 2673 g and no anomalies were noted. That is at [facility]. HPI Interval History: 29-year-old 3 para 3 for 3-week . Patient had a vaginal delivery June 17, 2025. A baby boy. 8-8. Bottlefeeding. Patient is happy. Denies depression. The siblings are adjusting. She is not sexually active yet. And she plans to use combo pill. No complaints. Limited help at home. The father baby is involved Was or delivery considered high risk: No Delivery type: vaginal Was labor induced: no Gestational age at delivery (weeks): 39 Delivery date: 06/17/25 Delivering provider: melany beltran Delivery complications: No Is patient infant: No Is patient sexually active: No Contraception planned: combined pill Review of Systems Review of Systems ROS limited to current FIELD OPERATIONS MANAGER complaints: Yes Exam Narrative Physical exam: Normal heart rate and rhythm. Lungs clear no wheezes. Abdomen is soft nontender. Uterus well involuted. Perineum is intact no lacerations. No swelling. Small lochia. Negative Homans' sign. 2+ DTRs. No edema no swelling. Breasts are soft General Limitations: no limitations General Appearance: alert, in no apparent distress, comfortable, cooperative, healthy appearing, well developed and well groomed Head Head exam: atraumatic, normocephalic and normal inspection ENT ENT exam: Present normal exam, normal oropharynx and mucous membranes moist Resp Respiratory exam: Present normal lung sounds bilaterally Card Cardiovascular exam: Present regular rate, normal rhythm and normal heart sounds Abdominal Abdominal exam: Present soft and normal bowel sounds Psych Psychiatric exam: Present normal affect and normal mood Office Procedures [facility] LOC & Office Proc's Nursing/Assessment Patient Status: Established Patient [facility] Clinic Nursing Assessment: Medication Reconciliation, Update PMH in EMR and Vital Signs OB Clinic Coordination of Care: Complex Care and Chronic Disease 1-5, Education Complex Pt/Fam, Consent,records obtained, informed consent, Results/Orders obtained and Staff clarify orders Established Patient Charge Established Patient Point Assignment: 95 Established Patient Point Charge: EP Level 3 (80-115) Antepartum Initial or Follow-up Antepartum Initial Visit: Yes Assessment & Plan Diagnosis / Problem List (1) 2 weeks follow-up: Status: Acute Plan Will start control pills at next visit. No sex. Continue vitamins. Increase rest and fluids. Return in 3 weeks for control start Care Reviewed delivery summary and any complications: Yes Uterus involuted to: 3 below umb Perineal / incision healing noted: Yes Screened for depression: Yes Depression counseling provided: No Discussed family planning & contraception: Yes Contraception planned: combined pill Counseling on safe resumption of sexual activity: Yes Counseling on gradual excercise: Yes Discussed and concerns (describe), provided support: No Referred to facility practice specialist: No Counseled on good nutrition, hydration, and self care: Yes Reviewed vaccine status: No Chronic & current problems reconciled on problem list: Yes care discussed; questions answered: feeding Additional counseling & anticipatory guidance provided: Discussed diet and exercise. Discussed control pill start in 3 weeks. Continue prenatals. Increase rest and try and get family to help.
== END 2025-07-08 10:49 | disposition home or self-care (01) ==
LOC: HODSOBC 10:11
PROVIDERS: PCP Family Medicine; Referring Provider Family Medicine; Supervising Provider Advanced Practice Midwife; Visit Provider Advanced Practice Midwife
DX: Z39.2 Encounter for routine postpartum follow-up (principal)
CPT/HCPCS: 59425; 99213; G0463

== ENCOUNTER 2025-07-30 08:48 | Outpatient (AMB) | payer BC, MEDICAID, SELFPAY ==
[2025-07-30 09:07] VITALS: BP 115/79; PULSE 90; RESP 18; TEMP 36.2; O2SAT 98; BMI 27.7
--- NOTE | 2025-07-30 09:07 | AMB.OBPP ---
Vital Signs 07/30/25 09:07 Height 1.55 m Height Method Stated Weight 66.678 kg Weight Measurement Method Standing Scale BMI 27.7 BP 115/79 Blood Pressure Source Automatic Cuff Blood Pressure Location Left Upper Arm Position Sitting Respiration 18 Pulse 90 Pulse Source Monitor Temp 97.2 F Temp Source Oral Pulse Oximetry (%) 98 Oxygen Delivery Method Room Air Allergies/Home Meds Allergies & Medications Allergies banana Allergy (Intermediate, Verified 07/30/25 09:08) Swelling Medication Reconciliation vits no.130-ferrous fum 27 mg iron-folic acid 800 mcg tablet ( Vitamin) 1 tab PO QDAY 06/17/25 [History Confirmed 07/30/25] sertraline 25 mg tablet (Zoloft) 25 mg PO QDAY #60 tabs 07/30/25 [Rx] Intake Visit Data Collection New Patient or Established: Established Patient (seen at [facility] within 3 years) Reason for Visit:: Seen by Clinical Staff ONLY (RN/MA): No Self Contained Behavior Unit Teacher Required: No Do You Feel Safe at Home: Yes Authorities Contacted: N/A PCP or OBGYN visit in last 3 months: Yes Date of Last PCP or OBGYN visit: 07/08/25 Hx Now: No Are you currently on any form of Control: No Pain Present Currently: No Pain Scale Used: Garsia-Quigley/Numerical Pain scale:: 0 Smoking Status Smoking Status: Never smoker Immunizations Flu Vaccine in the Last 12 Months: Yes Flu Vaccine Exclusion Criteria: No Exclusion Criteria and Already Received 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: Past Medical History Past Medical History: No Hx Neurological Disorders, No Hx Breast Cancer, No Hx Cardiac Disorders, Yes Hx Blood Disorders, Yes Hx Anemia, No Hx Gastrointestinal Disorders, No Hx Renal Disease, No Hx Diabetes Mellitus Type 1 and No Hx Diabetes Mellitus Type 2 Questionnaires Covid-19 Vaccine Questionnaire Has patient been vacinated for Covid-19 Have you been vacinated for Covid-19: No Social History Living Situation History Lives With: Family Housing: House Housing Other:: Has a 7 and 8-year-old at home Tobacco History Smoking Status: Never smoker Second Hand Smoke Exposure: No Alcohol History Alcohol Intake: Never Domestic Abuse History Do You Feel Safe at Home: Yes EPDS - PP Depression Screening [place] Pospartum Depression Screen I have been able to laugh and see the funny side of things: (0) As much as I always could I have looked forward with enjoyment to things: (0) As much as I ever did I have blamed myself unnecessarily when things went wrong: (0) No, never I have been anxious or worried for no good reason: (0) No, not at all I have felt scared or panicky for no very good reason: (0) No, not at all Things have been getting on top of me: (0) No, I have been coping as well as ever Care OB Visit Log OB Flowsheet Initial Weight: Not Recorded Date <del>?</del> EGA Weight BP Alb Glu CTX Pres Fundal ht FHR Mov Dilation Station Effacement Hx Notes Visit Note 05/01/25 <del>?</del> 32w 5d 70.477 kg 114/80 breech 32 145 active New OB. Labs and ultrasound ordered. Patient reports good movement denies contractions vaginal bleeding or loss of fluids. 1 hour glucose ordered. 05/17/25 <del>?</del> 35w 0d 71.327 kg 99/69 occasional cephalic 35 147 active Labs reviewed from November 2024 and normal Patient just had her glucose test today and ultrasound for growth at [facility]. 05/27/25 <del>?</del> 36w 3d 70.76 kg 96/65 occasional cephalic 36 145 active Fetus active. Patient would like disability. No OB complaints. Denies leaking, bleeding, contractions GBS today. Macrobid 100 p.o. twice daily for UTI. Increase fluids. Discussed labor precautions. Note to start disability. Patient's last date of work will be May 31 and then disability will start June 03. Discussed labor precautions and kick count. Return in a week OB 06/11/25 <del>?</del> 38w 4d 71.214 kg 96/64 occasional cephalic 37 138 active Fetus active. Reports irregular contractions. Denies leaking or bleeding. No leaking, no bleeding. Discussed GBS is negative. Kick count twice a day. Discussed OB comforts. Return a week OB check KARTHIK Calculator Estimated Delivery Date Method Current WG Current Estimate 06/21/25 LMP (Certain) 45w 4d Other Estimates 06/17/25 Ultrasound #1 46w 1d 06/21/25 Manual 45w 4d final karthik: 06/21/25 Expected Delivery Route/Plan labs on chart December 10, 2024 at [facility]:A+/antibody negative/rubella immune/RPR nonreactive/HIV negative/hepatitis B surface antigen negative/gonorrhea negative Chlamydia negative/cystic fibrosis testing from [place] negative/no NIPT drawn/hemoglobin A1c in November was 5/structural survey January 28, 2025 at [facility] normal structural survey baby was 20 weeks and 0 days Specific Issue/Plans -0-0-2 Vaginal delivery in 2017 of a son. She did have an epidural with that delivery. Vaginal delivery in 2018 of a daughter. Labor was too fast to get an epidural. Patient desires epidural this . Notes Visit Date: 06/11/25 Last Updated by: Maggy Colin CNM 06/11: GBS- Visit Date: 05/27/25 Last Updated by: Maggy Colin CNM OB panel: A+,abs-, rpr;;nr, rub imm, hbsag-, hiv-, HC-, GC/CT-, + UTI/TX with macrobid, RPR::NR, rub imm, 1 hr gtt:wnl Visit Date: 05/17/25 Last Updated by: Deisy Macario (OB Clinic)MD Patient presents with her . She is doing well. She was concerned as the baby was breech on last ultrasound 2 weeks ago. Today the baby is vertex. An official ultrasound was done today revealing a live IUP in the vertex presentation with a fundal grade 2 placenta CHARLI 7.1 baby is measuring 35-4/7 days with a estimated weight of 2673 g and no anomalies were noted. That is at [facility]. HPI Interval History: 29-year-old 3 para 3 for 6-week . Patient had a vaginal June 17, 2025. Baby boy weighing 8 pounds 4. She had 1 stitch no other tears. She is bottlefeeding. Patient is not sexually active. Last. July 22, 2025. Patient is unsure about control. Patient reports that she is feeling both anxious and depressed. She states that she is having a hard time bonding with her baby. She reports that she spends more time with her 2 older children that are 7 or 8 and then is not paying as much attention to the baby. Bottlefeeding and patient reports that she does hold the baby but she does not talk or engage. The 2 older children are involved in the baby's care. She reports that she had good support from her and he tends to take more care of the baby but went back to work. Patient does not feel like harming herself. But she cries she feels that she is not getting much sleep. Sometimes she is sad. edinburgh score over 15 Was or delivery considered high risk: No Delivery type: vaginal Was labor induced: no Gestational age at delivery (weeks): 39 Delivery date: 06/17/25 Delivering provider: laya Hernandez complications: No Is patient : No Is patient sexually active: No Contraception planned: unsure Review of Systems Review of Systems ROS limited to current 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 complaints: Yes Exam Narrative Physical exam: Normal heart rate and rhythm. Lungs clear no wheezes. Abdomen is soft nontender. Uterus well involuted. Perineum is intact no lacerations. No swelling. Small lochia. Negative Homans' sign. 2+ DTRs. No edema no swelling. Breasts are soft Office Procedures OBC Clinic LOC & Office Proc's Nursing/Assessment Patient Status: Established Patient OB Clinic Nursing Assessment: Medication Reconciliation, Update PMH in EMR and Vital Signs OB Clinic Coordination of Care: Consent,records obtained, informed consent, Education Simp Pt/Fam, Lab and Imaging orders, Results/Orders obtained and Staff clarify orders Established Patient Charge Established Patient Point Assignment: 80 Established Patient Point Charge: EP Level 3 (80-115) Assessment & Plan Diagnosis / Problem List (1) Encounter for visit: Status: Acute (2) 6 weeks follow-up: Status: Acute Plan Extend disability to 4 weeks. Patient will go back to work August 30, 2025. Start Zoloft 25 mg daily. I advised patient to make an appointment with [facility] and schedule appointment with behavioral health. I discussed with patient ways to troubleshoot lack of sleep. I advised patient to talk with her about the feeling she is having towards the baby. And to talk with her mother to see if she will come in to help her while her partner is at work. I gave us hints about including the baby more in her daily activities especially when involves her other children. Patient declined contraception at this time. Continue prenatals. Condoms for backup. Return in 3 weeks to evaluate for return to work. refer to [place] [facility] Reviewed delivery summary and any complications: Yes Uterus involuted to: 3 below Perineal / incision healing noted: Yes Screened for depression: Yes Depression counseling provided: Yes Discussed family planning & contraception: Yes Contraception planned: unsure Counseling on gradual excercise: Yes Discussed and concerns (describe), provided support: No Referred to irrigation installation specialist: No Counseled on good nutrition, hydration, and self care: Yes Chronic & current problems reconciled on problem list: Yes care discussed; questions answered: feeding Follow up: routine/prn Additional counseling & anticipatory guidance provided: rtc 3 week for f/u depression
== END 2025-07-30 09:50 | disposition home or self-care (01) ==
LOC: HODSOBC 08:48
PROVIDERS: Supervising Provider Advanced Practice Midwife; Visit Provider Advanced Practice Midwife
DX: Z39.2 Encounter for routine postpartum follow-up (principal); O99.345 Other mental disorders complicating the puerperium; F53.0 Postpartum depression
CPT/HCPCS: 99213; G0463

== ENCOUNTER 2025-08-21 10:47 | Outpatient (AMB) | payer BC, MEDICAID, SELFPAY ==
[2025-08-21 10:56] VITALS: BP 112/74; PULSE 77; RESP 18; TEMP 36.6; O2SAT 98; BMI 28.0
--- NOTE | 2025-08-21 10:56 | AMB.OBPP ---
Vital Signs 08/21/25 10:56 Height 1.55 m Height Method Stated Weight 67.358 kg Weight Measurement Method Standing Scale BMI 28.0 BP 112/74 Blood Pressure Source Automatic Cuff Blood Pressure Location Right Upper Arm Position Sitting Respiration 18 Pulse 77 Pulse Source Monitor Temp 97.9 F Temp Source Temporal Artery Scan Pulse Oximetry (%) 98 Oxygen Delivery Method Room Air Allergies/Home Meds Allergies & Medications Allergies banana Allergy (Intermediate, Verified 08/21/25 10:58) Swelling Medication Reconciliation vits no.130-ferrous fum 27 mg iron-folic acid 800 mcg tablet ( Vitamin) 1 tab PO QDAY 06/17/25 [History Confirmed 08/21/25] sertraline 25 mg tablet (Zoloft) 25 mg PO QDAY #60 tabs 07/30/25 [Rx Confirmed 08/21/25] Intake Visit Data Collection New Patient or Established: Established Patient (seen at [facility] within 3 years) Reason for Visit:: FOLLOW UP Seen by Clinical Staff ONLY (RN/MA): No Rail Technician Required: No Do You Feel Safe at Home: Yes Authorities Contacted: N/A PCP or OBGYN visit in last 3 months: Yes Hx Now: No Are you currently on any form of Control: No Pain Present Currently: No Pain Scale Used: Garsia-Quigley/Numerical Pain scale:: 0 Smoking Status Smoking Status: Never smoker Immunizations Flu Vaccine in the Last 12 Months: No Flu Vaccine Exclusion Criteria: Refused by 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 Medical History Past Medical History: No Hx Neurological Disorders, No Hx Breast Cancer, No Hx Cardiac Disorders, Yes Hx Blood Disorders, Yes Hx Anemia, No Hx Gastrointestinal Disorders, No Hx Renal Disease, No Hx Diabetes Mellitus Type 1 and No Hx Diabetes Mellitus Type 2 Questionnaires Covid-19 Vaccine Questionnaire Has patient been vacinated for Covid-19 Have you been vacinated for Covid-19: No Social History Living Situation History Lives With: Family Housing: House Housing Other:: Has a 7 and 8-year-old at home Tobacco History Smoking Status: Never smoker Second Hand Smoke Exposure: No Alcohol History Alcohol Intake: Never Domestic Abuse History Do You Feel Safe at Home: Yes EPDS - PP Depression Screening [place] Pospartum Depression Screen I have been able to laugh and see the funny side of things: (0) As much as I always could I have looked forward with enjoyment to things: (0) As much as I ever did I have blamed myself unnecessarily when things went wrong: (0) No, never I have been anxious or worried for no good reason: (0) No, not at all I have felt scared or panicky for no very good reason: (0) No, not at all Things have been getting on top of me: (0) No, I have been coping as well as ever I have been so unhappy that I have had difficulty sleeping: (0) No, not at all I have felt sad or miserable: (0) No, not at all I have been so unhappy that I have been crying: (0) No, never The thought of harming myself has occurred to me: (0) Never EPDS completed yes Care OB Visit Log OB Flowsheet Initial Weight: Not Recorded Date <del>?</del> EGA Weight BP Alb Glu CTX Pres Fundal ht FHR Mov Dilation Station Effacement Hx Notes Visit Note 05/01/25 <del>?</del> 32w 5d 70.477 kg 114/80 breech 32 145 active New OB. Labs and ultrasound ordered. Patient reports good movement denies contractions vaginal bleeding or loss of fluids. 1 hour glucose ordered. 05/17/25 <del>?</del> 35w 0d 71.327 kg 99/69 occasional cephalic 35 147 active Labs reviewed from November 2024 and normal Patient just had her glucose test today and ultrasound for growth at [facility]. 05/27/25 <del>?</del> 36w 3d 70.76 kg 96/65 occasional cephalic 36 145 active Fetus active. Patient would like disability. No OB complaints. Denies leaking, bleeding, contractions GBS today. Macrobid 100 p.o. twice daily for UTI. Increase fluids. Discussed labor precautions. Note to start disability. Patient's last date of work will be May 31 and then disability will start June 03. Discussed labor precautions and kick count. Return in a week OB 06/11/25 <del>?</del> 38w 4d 71.214 kg 96/64 occasional cephalic 37 138 active Fetus active. Reports irregular contractions. Denies leaking or bleeding. No leaking, no bleeding. Discussed GBS is negative. Kick count twice a day. Discussed OB comforts. Return a week OB check KARTHIK Calculator Estimated Delivery Date Method Current WG Current Estimate 06/21/25 LMP (Certain) 48w 5d Other Estimates 06/17/25 Ultrasound #1 49w 2d 06/21/25 Manual 48w 5d final karthik: 06/21/25 Expected Delivery Route/Plan labs on chart December 10, 2024 at [facility]:A+/antibody negative/rubella immune/RPR nonreactive/HIV negative/hepatitis B surface antigen negative/gonorrhea negative Chlamydia negative/cystic fibrosis testing from [place] negative/no NIPT drawn/hemoglobin A1c in November was 5/structural survey January 28, 2025 at [facility] normal structural survey baby was 20 weeks and 0 days Specific Issue/Plans -0-0-2 Vaginal delivery in 2017 of a son. She did have an epidural with that delivery. Vaginal delivery in 2018 of a daughter. Labor was too fast to get an epidural. Patient desires epidural this . Notes Visit Date: 06/11/25 Last Updated by: Maggy Colin CNM 06/11: GBS- Visit Date: 05/27/25 Last Updated by: Maggy Colin CNM OB panel: A+,abs-, rpr;;nr, rub imm, hbsag-, hiv-, HC-, GC/CT-, + UTI/TX with macrobid, RPR::NR, rub imm, 1 hr gtt:wnl Visit Date: 05/17/25 Last Updated by: Deisy Macario (OB Clinic)MD Patient presents with her . She is doing well. She was concerned as the baby was breech on last ultrasound 2 weeks ago. Today the baby is vertex. An official ultrasound was done today revealing a live IUP in the vertex presentation with a fundal grade 2 placenta CHARLI 7.1 baby is measuring 35-4/7 days with a estimated weight of 2673 g and no anomalies were noted. That is at [facility]. Office Procedures OBC Clinic LOC & Office Proc's Nursing/Assessment Patient Status: Established Patient OB Clinic Nursing Assessment: Medication Reconciliation, Update PMH in EMR and Vital Signs OB Clinic Coordination of Care: Complex Care and Chronic Disease 1-5, Consent,records obtained, informed consent, Education Simp Pt/Fam, 1 Ins Authorization, Lab and Imaging orders, Results/Orders obtained and Staff clarify orders Established Patient Charge Established Patient Point Assignment: 120 Established Patient Point Charge: EP Level 4 (120-155)
--- NOTE | 2025-08-21 11:57 | AMB.GYNCLNOT ---
Vital Signs 08/21/25 10:56 08/21/25 11:58 Height 1.55 m Height Method Stated Weight 67.358 kg Weight Measurement Method Standing Scale BMI 28.0 BP 112/74 112/74 Blood Pressure Source Automatic Cuff Blood Pressure Location Right Upper Arm Position Sitting Respiration 18 18 Pulse 77 77 Pulse Source Monitor Temp 97.9 F 97.9 F Temp Source Temporal Artery Scan Pulse Oximetry (%) 98 98 Oxygen Delivery Method Room Air Allergies/Home Meds Allergies & Medications Allergies banana Allergy (Intermediate, Verified 08/21/25 11:57) Swelling Medication Reconciliation vits no.130-ferrous fum 27 mg iron-folic acid 800 mcg tablet ( Vitamin) 1 tab PO QDAY 06/17/25 [History Confirmed 08/21/25] drospirenone 3 mg-ethinyl estradiol 0.03 mg tablet (Mckenna (28)) 1 tab PO QDAY #84 tabs 08/21/25 [Rx] sertraline 25 mg tablet (Zoloft) 25 mg PO QDAY #60 tabs 08/21/25 [Rx] Intake Visit Data Collection New Patient or Established: Established Patient (seen at [facility] within 3 years) Reason for Visit:: CONTROL Seen by Clinical Staff ONLY (RN/MA): No Biodiesel Processing Technician Required: No Do You Feel Safe at Home: Yes Authorities Contacted: N/A PCP or OBGYN visit in last 3 months: Yes Date of Last PCP or OBGYN visit: 07/30/25 Hx Now: No Are you currently on any form of Control: No Pain Present Currently: No Pain Scale Used: Garsia-Quigley/Numerical Pain scale:: 0 Smoking Status Smoking Status: Never smoker Immunizations Flu Vaccine in the Last 12 Months: No Flu Vaccine Exclusion Criteria: No Exclusion Criteria Family Resource Management Professor history Family Resource Management Professor History Menstrual regularity: regular Flow: normal Monthly: Yes Age at menarche: 13 Menopausal: No Currently sexually active: 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 1. Little interest or pleasure in doing things: not at all 2. Feeling down, depressed, or hopeless: not at all Total score: 0 PHQ-9 3. Trouble falling or staying asleep, or sleeping too much: Not at all 4. Feeling tired or having little energy: Not at all 5. Poor appetite or overeating: Not at all 6. Feeling bad about yourself - or that you are a failure or have let yourself or your family down: Not at all 7. Trouble concentrating on things, such as reading the newspaper or watching television: Not at all 8. Moving or speaking so slowly that other people could have noticed? - Or the opposite - being so fidgety or restless that you have been moving around a lot more than usual: not at all 9. Thoughts that you would be better off or of hurting yourself in some way: Not at all Total score: 0 If you checked off any problems, how difficult have these problems made it for you to do your work, take care of things at home, or get along with other people?: not difficult at all Source: Developed by Drs. Arnaldo Massey, Adia Perez, Constantin Keller and colleagues, with an educational myron from [employer]. Depression screen completed yes Social History Living Situation History Lives With: Family Housing: House Housing Other:: Has a 7 and 8-year-old at home Tobacco History Smoking Status: Never smoker Second Hand Smoke Exposure: No Alcohol History Alcohol Intake: Never Domestic Abuse History Do You Feel Safe at Home: Yes History of Present Illness HPI Narrative 29 yo for pill start and f/u on pp depression. Patient had a baby boy on June 17. She is bottlefeeding. At her 6-week she was feeling depressed and overwhelmed. Patient was started on Zoloft 25 mg p.o. daily. She reports that the Zoloft is helping with her mood feelings. Patient also saw her family practice provider several weeks ago at [facility] and she has behavioral health appointment pending. Patient is trying to talk to her about feeling overwhelmed and needing more help. She is also talked to her family and getting more help from them. Patient started a new job she does not qualify for baby bonding so she is here to see if she could extend her disability. Patient already was given 4 more weeks of disability for depression. Her last period was August 15. She reports it is heavier than usual. The last time she had sex was prior to that. She like to start on control pills. Used them in the past with no problem Exam General Limitations: no limitations General Appearance: alert, in no apparent distress, comfortable, cooperative, healthy appearing, well developed and well groomed Neck Neck exam: Present normal inspection, full ROM and trachea midline Chest Chest inspection: Present normal inspection and symmetric chest wall rise Resp Respiratory exam: Present normal lung sounds bilaterally Card Cardiovascular exam: Present regular rate, normal rhythm and normal heart sounds Abdominal Abdominal exam: Present soft and normal bowel sounds Psych Psychiatric exam: Present normal affect and normal mood Office Procedures OBC Clinic LOC & Office Proc's Nursing/Assessment Patient Status: Established Patient OB Clinic Nursing Assessment: Medication Reconciliation, Update PMH in EMR and Vital Signs OB Clinic Coordination of Care: Complex Care and Chronic Disease 1-5, Consent,records obtained, informed consent, Education Simp Pt/Fam, 1 Ins Authorization, Lab and Imaging orders, Results/Orders obtained and Staff clarify orders Established Patient Charge Established Patient Point Assignment: 120 Established Patient Point Charge: EP Level 4 (120-155) Assessment & Plan Diagnosis / Problem List (1) Encounter for initial prescription of contraceptive pills: Status: Acute Plan Mckenna x 6. Start today. Condoms for 2 weeks. Reviewed method, side effects and compliance. I did not extend disability. But I wrote a note for patient to go back to work September 30. And she will finish the time off unpaid. Patient will continue to follow-up with her family practice for depression. Continue Zoloft 25 mg p.o. daily. I refilled that. Discussed diet and exercise. She should continue to follow-up with those things that are helping her to feel better. And to follow-up with behavioral health. Return in 6 months for pill refill
[2025-08-21 11:58] VITALS: BP 112/74; PULSE 77; RESP 18; TEMP 36.6; O2SAT 98
== END 2025-08-21 11:59 | disposition home or self-care (01) ==
LOC: HODSOBC 10:47
PROVIDERS: Supervising Provider Advanced Practice Midwife; Visit Provider Advanced Practice Midwife
DX: Z30.011 Encounter for initial prescription of contraceptive pills (principal); O99.345 Other mental disorders complicating the puerperium; F53.0 Postpartum depression
CPT/HCPCS: 99214; G0463